=== PATIENT | female | born 1990 | race Asian ===

== ENCOUNTER 2020-08-18 13:42 | Emergency (ER) | payer MEDICAID, OTHER, SELFPAY ==
[2020-08-18 13:51] VITALS: BP 114/74; PULSE 87; RESP 16; TEMP 36.1; O2SAT 98; BMI 25.4
[2020-08-18 14:11] LABS: Glucose Urine UA NEG (NEG); Leukocyte Esterase Urine 1+ (NEG); Nitrite Urine NEG (NEG); Specific Gravity - Urine >= 1.030 (1.005-1.025); UACC Culture Trigger YES; Urine Blood TRACE (NEG); Urine Ketones NEG (NEG); Urine Protein NEG (NEG-TRACE)
[2020-08-18 14:12] LABS: Appearance Urine HAZY; Color Urine YELLOW
[2020-08-18 14:13] LABS: UPreg QC Valid YES; Urine Pregnancy POSITIVE (NEGATIVE)
[2020-08-18 14:21] LABS: Bacteria Urine 1+ /LPF; Mucus Urine 1+ /LPF; Squamous Epithelial Cell Urine 2+ /LPF
[2020-08-18 15:55] LABS: MANUAL DIFF FLAG NO
[2020-08-18 15:58] LABS: Basophils Absolute Auto 0.1 X10*3/uL (0.0-0.2); Basophils Percent Auto 0.5 % (0-2); Eosinophils Absolute Auto 0.2 X10*3/uL (0.0-0.4); Eosinophils Percent Auto 1.4 % (0-4); Hematocrit 39.8 % (37-47); Hemoglobin 13.4 g/dl (12.0-16.0); Imm Gran Abs Auto 0.07 X10*3/uL (0.00-0.03); Imm Gran Pct Auto 0.5 % (0.0-0.4); Lymphocytes Absolute Auto 3.2 X10*3/uL (1.2-4.9); Lymphocytes Percent Auto 22.3 % (20-40); Mean Corpuscular HGB Conc 33.7 g/dl (31.0-35.0); Mean Corpuscular Hemoglobin 30.9 pg (27.0-33.0); Mean Corpuscular Volume 91.9 fL (80-98); Mean Platelet Volume 10.6 fL (9.4-12.3); Monocytes Absolute Auto 0.8 X10*3/uL (0.1-1.2); Monocytes Percent Auto 5.8 % (2-11); Neutrophils Percent Auto 69.5 % (45-73); Platelet Count 299 X10*3/uL (160-400); Red Blood Count 4.33 X10*6/uL (4.20-5.50); Red Cell Distribution Width 12.2 % (11.0-16.0); White Blood Count 14.3 X10*3/uL (4.8-10.8)
[2020-08-18 16:27] LABS: Anion Gap 11 (12-20); Blood Urea Nitrogen 8 mg/dL (9-16); Calcium 9.2 mg/dL (8.4-10.2); Carbon Dioxide 26 mmol/L (22-29); Chloride 104 mmol/L (96-108); Creatinine Clr Calc Pharmacy 115.8; Estimated Glomerular Filt Rate > 60; Glucose Random 76 mg/dL (60-115); Sodium 137 mmol/L (135-145)
[2020-08-18 17:47] VITALS: BP 111/70; PULSE 72; RESP 16
--- NOTE | 2020-08-18 18:07 | ED_ITS ---
HPI - General Chief complaint: Abdominal Pain Stated complaint: abd pain Source: patient Mode of arrival: ambulatory Limitations: language barrier History of Present Illness HPI Narrative: 29-year-old female, speaks Mandarin, approximately 10 weeks presents with 2 days of left lower quadrant abdominal pain that started suddenly. Pain is sharp, intermittent and increasing in intensity. she has had 1 other without complications and normal vaginal delivery. At this time she denies vaginal discharge, vaginal bleeding, abuse, trauma, chest pain or pressure, palpitations, abdominal distention, dysuria, hematuria, and edema. MD Complaint: abdominal pain Onset (ago): day(s) (2) Pain Consistency: intermittent Location: abdomen Severity: severe Quality: Cramping and Stabbing Radiation: abdomen Exacerbating factors: movement Associated symptoms: denies other symptoms Vaginal discharge: none Vaginal bleeding: none Date of Last Menstrual Period: 06/08/20 Patient : Yes Expected Date of Delivery: 03/26/21 OB History - Current : no complications OB History - Previous Pregnancies: no complications Related Data : 2 Para: 1 Total number of abortions (spontaneous and elective): 0 Previous Rx's Medication Instructions Recorded cephalexin [Keflex] 500 mg PO Q6H 7 Days #28 cap 08/18/20 Allergies Allergy/AdvReac Type Severity Reaction Status Date / Time No Known Allergies Allergy Unverified 04/11/20 19:36 [No Known Allergies*] Review of Systems Review of Systems: Constitutional: No Fever, No Chills ENT/Mouth: No Ear Pain, No Hoarseness, No sore throat Eyes: No Eye Pain, No Swelling, No Redness, No Foreign Body Cardiovascular: No Chest Pain, No SOB Respiratory: No Cough, No Dyspnea Gastrointestinal: Positive left lower quadrant abdominal pain, No Nausea, No Vomiting, No Diarrhea Genitourinary: Positive , No Dysuria, No Hematuria Musculoskeletal: No joint pain, No Myalgias, No Joint Swelling Skin: No Skin lacerations, No rash Neuro: No Weakness, No Numbness, No Paresthesias, No Loss of Consciousness, No Dizziness, No Headache Psych: No Anxiety/Panic, No Depression Heme/Lymph: no easy bruising, no Lymphadenopathy Endocrine: No Polyuria, No Polydipsia Yes all other systems are reviewed and are negative [facility] Past Medical History Medical History (Updated 08/18/20 @ 21:48 by Pennie Herrera NP) Hypothyroid : 2 Para: 1 Total number of abortions (spontaneous and elective): 0 Date of Last Menstrual Period: 06/08/20 Social History Social History Advance Directives: No Advance Directives Information Provided: No Physical Exam Vital Signs: Vital Signs: Last Vital Signs Temp 97.6 F 08/18/20 21:17 Pulse 74 08/18/20 21:17 Resp 18 08/18/20 21:17 BP 124/75 08/18/20 21:17 Pulse Ox 98 08/18/20 21:17 Body Mass Index 25.4 Appearance: Alert. Oriented X3. No acute distress. Eyes: Pupils equal, round and reactive to light. ENT: Pharynx normal. Neck: Normal inspection. Neck supple. CVS: Normal heart rate and rhythm. Pulses normal. Respiratory: No respiratory distress. Breath sounds normal. Abdomen: Soft and tender to palpation to the left lower quadrant and inguinal. No palpable fundus. Skin: Skin warm and dry. Normal skin color. Normal skin turgor. Extremities: No lower extremity edema. Neuro: No motor deficit. No sensory deficit. Course Course Course Narrative: 29-year-old female presents with left lower quadrant pain has started some lead 2 days ago. Approximately 10-14 weeks . One prior with no complications and normal vaginal delivery. Plan of care is for pelvic ultrasound, patient declines pelvic time. She does not have any vaginal bleeding or vaginal discharge. Pelvic ultrasound shows intrauterine at 10 weeks 1 day, heart rate 163. No abnormalities noted. Urinalysis positive for UTI. Will treat with Keflex. Patient does speak Mandarin, family at bedside to translate. Patient verbalized understanding of and agrees plan care discharge home. MDM - OB/Uterine Contractions Lab Data Result diagrams: 08/18/20 15:47 08/18/20 15:47 Labs: Lab Results 08/18/20 08/18/20 08/18/20 Range/Units 14:03 15:47 15:47 WBC 14.3 H (4.8-10.8) X10*3/uL RBC 4.33 (4.20-5.50) X10*6/uL Hgb 13.4 (12.0-16.0) g/dl Hct 39.8 (37-47) % MCV 91.9 (80-98) fL MCH 30.9 (27.0-33.0) pg MCHC 33.7 (31.0-35.0) g/dl RDW 12.2 (11.0-16.0) % Plt Count 299 (160-400) X10*3/uL MPV 10.6 (9.4-12.3) fL Immature Gran % (Auto) 0.5 H (0.0-0.4) % Neut % (Auto) 69.5 (45-73) % Lymph % (Auto) 22.3 (20-40) % [place] % (Auto) 5.8 (2-11) % Eos % (Auto) 1.4 (0-4) % Baso % (Auto) 0.5 (0-2) % Lymph # (Auto) 3.2 (1.2-4.9) X10*3/uL [place] # (Auto) 0.8 (0.1-1.2) X10*3/uL Eos # (Auto) 0.2 (0.0-0.4) X10*3/uL Baso # (Auto) 0.1 (0.0-0.2) X10*3/uL Abs Immat Gran (auto) 0.07 H (0.00-0.03) X10*3/uL Absolute Neuts (auto) 10.0 H (2.0-8.3) X10*3/uL Absolute Nucleated RBC 0.000 (0.0-0.012) X10*3/uL Nucleated RBC % (auto) 0.0 (0.0-0.2) /100WBC Sodium 137 (135-145) mmol/L Potassium 4.0 (3.3-5.1) mmol/l Chloride 104 (96-108) mmol/L Carbon Dioxide 26 (22-29) mmol/L Anion Gap 11 L (12-20) BUN 8 L (9-16) mg/dL Creatinine 0.64 (0.5-1.4) mg/dL Estim Creat Clear Calc 115.8 Estimated GFR > 60 Random Glucose 76 (60-115) mg/dL Calcium 9.2 (8.4-10.2) mg/dL Beta HCG, Quant [id number] mIU/mL Urine Color YELLOW Urine Appearance HAZY Urine pH 6.0 (5.0-8.0) Ur Specific [place] >= 1.030 H (1.005-1.025) Urine Protein NEG (NEG-TRACE) MG/DL Urine Glucose (UA) NEG (NEG) MG/DL Urine Ketones NEG (NEG) MG/DL Urine Blood TRACE (NEG) Urine Nitrite NEG (NEG) Ur Leukocyte Esterase 1+ H (NEG) Urine RBC 1-4 (0) /HPF Urine WBC 10-14 H (0-4) /HPF Ur Squamous Epith Cells 2+ /LPF Urine Bacteria 1+ /LPF Urine Mucus 1+ /LPF Urine Test POSITIVE H (NEGATIVE) Blood Type 08/18/20 Range/Units 18:50 WBC (4.8-10.8) X10*3/uL RBC (4.20-5.50) X10*6/uL Hgb (12.0-16.0) g/dl Hct (37-47) % MCV (80-98) fL MCH (27.0-33.0) pg MCHC (31.0-35.0) g/dl RDW (11.0-16.0) % Plt Count (160-400) X10*3/uL MPV (9.4-12.3) fL Immature Gran % (Auto) (0.0-0.4) % Neut % (Auto) (45-73) % Lymph % (Auto) (20-40) % [place] % (Auto) (2-11) % Eos % (Auto) (0-4) % Baso % (Auto) (0-2) % Lymph # (Auto) (1.2-4.9) X10*3/uL [place] # (Auto) (0.1-1.2) X10*3/uL Eos # (Auto) (0.0-0.4) X10*3/uL Baso # (Auto) (0.0-0.2) X10*3/uL Abs Immat Gran (auto) (0.00-0.03) X10*3/uL Absolute Neuts (auto) (2.0-8.3) X10*3/uL Absolute Nucleated RBC (0.0-0.012) X10*3/uL Nucleated RBC % (auto) (0.0-0.2) /100WBC Sodium (135-145) mmol/L Potassium (3.3-5.1) mmol/l Chloride (96-108) mmol/L Carbon Dioxide (22-29) mmol/L Anion Gap (12-20) BUN (9-16) mg/dL Creatinine (0.5-1.4) mg/dL Estim Creat Clear Calc Estimated GFR Random Glucose (60-115) mg/dL Calcium (8.4-10.2) mg/dL Beta HCG, Quant mIU/mL Urine Color Urine Appearance Urine pH (5.0-8.0) Ur Specific [place] (1.005-1.025) Urine Protein (NEG-TRACE) MG/DL Urine Glucose (UA) (NEG) MG/DL Urine Ketones (NEG) MG/DL Urine Blood (NEG) Urine Nitrite (NEG) Ur Leukocyte Esterase (NEG) Urine RBC (0) /HPF Urine WBC (0-4) /HPF Ur Squamous Epith Cells /LPF Urine Bacteria /LPF Urine Mucus /LPF Urine Test (NEGATIVE) Blood Type O Positive Discharge Plan Discharge Clinical Impression: Abdominal pain, Intrauterine , UTI (urinary tract infection) Patient Disposition: Home, Self-Care Instructions: Abdominal Pain (ED), Urinary Tract Infection in (ED), at 11 to 14 Weeks (ED) Additional Instructions: You were evaluated for left lower quadrant abdominal pain. Pelvic ultrasound shows normal intrauterine at 10 weeks. Please follow-up with your primary care physician and or OBGYN. Thank you for choosing this emergency department for evaluation. Please fo llow-up with primary care physician as needed. Return to the emergency department for any new, concerning, or worsening symptoms. Prescriptions: New cephalexin [Keflex] 500 mg capsule 500 mg PO Q6H 7 Days Qty: 28 RF: 0 Interventions: ED Discharge Assessment Last Done: 08/18/20 21:22 Discharge Date/Time: 08/18/20 21:23
--- NOTE | 2020-08-18 18:07 | US_ITS ---
EXAMINATION: ULTRASOUND FIRST TRIMESTER CLINICAL INFORMATION: Left adnexal pain. . COMPARISON: None. TECHNIQUE: Transabdominal imaging of the pelvis was performed. FINDINGS: A normal gravid uterus is identified. A single living intrauterine gestation is identified with a crown-rump length of 17 mm corresponding to 8 weeks 2 days. This is discordant from the age by dates of 10 weeks 1 days for an CLAUDIA of March 28, 2021. A normal heart rate of 163 beats per minute is identified. Both ovaries are of normal size and echogenicity. The right measures 4.1 x 3.9 x 1.6 cm. The left measures 2.6 x 3.1 x 1.4 cm. There is no pelvic free fluid. US/US OB <= 14 weeks fetus IMPRESSION: Normal single living intrauterine gestation with an CLAUDIA of March 28, 2021.
[2020-08-18 21:17] VITALS: BP 124/75; PULSE 74; RESP 18; TEMP 36.4; O2SAT 98
== END 2020-08-18 21:23 | disposition home or self-care (01) ==
PROVIDERS: Emergency Provider Emergency Medicine Emergency Medical Services
DX: O23.41 Unspecified infection of urinary tract in pregnancy, first trimester (principal); Z3A.13 13 weeks gestation of pregnancy
CPT/HCPCS: 36415; 76801; 80048; 81001; 81003; 81025; 84702; 85025; 86900; 86901; 87086; 99284